=== PATIENT | female | born 1990 | race Caucasian/White ===

== ENCOUNTER → 2020-06-15 13:18 | Outpatient (CLI) | payer OTHER, SELFPAY ==
--- NOTE | ~2020-06-15 | XR_ITS ---
XR hand LT min 3V DATE: 06/15/2020 13:36 INDICATION: Smashed hand one week ago. Posterior pain and swelling. TECHNIQUE: 3 views COMPARISON: None FINDINGS: No fracture or dislocation, periosteal reaction or bone destruction. IMPRESSION: Negative Reviewed, dictated and finalized at location A. [facility] TECHNICIAN IMPRESSION: Negative
== END ==
PROVIDERS: PCP Nurse Practitioner; Visit Provider Nurse Practitioner
DX: M79.642 Pain in left hand (principal)
CPT/HCPCS: 73130